=== PATIENT | female | born 1990 | race African-American/Black ===

== ENCOUNTER 2016-04-25 09:05 | Emergency (ER) | payer MEDICAID, OTHER ==
[~2016-04-25] VITALS: Ht 160 cm; Wt 99.0 kg
[2016-04-25 09:51] VITALS: BP 153/91
[2016-04-25] MEDS ORDERED: HYDR-523 PO (09:51)
[2016-04-25] MEDS ORDERED: IBUP-1510 PO (09:51)
== END 2016-04-25 11:40 | disposition home or self-care (01) ==
LOC: ER 10:14
DX: K04.7 Periapical abscess without sinus (principal); K02.9 Dental caries, unspecified; Z98.890 Other specified postprocedural states
CPT/HCPCS: 99283